=== PATIENT | female | born 1955 | race Caucasian/White ===

== ENCOUNTER 2021-03-11 09:12 | Day surgery (SDC) | payer OTHER ==
[~2021-03-11] VITALS: Ht 175.3 cm; Wt 113.4 kg
[~2021-03-11 09:12] MED LIST: ADULT ASPIRIN R81 MG PO; ATIVAN1 M1 PO; COZAAR100 MG PO; CYMBALTA30 MG PO; HYDRALAZINE 5050 MG PO; KEFLEX250 MG PO; LIPITOR 20 MG T20 M1 PO; NICODERM CQ1 EAC1 TOP; PEPCID40 MG PO; TYLENOL EXTRA500 MG PO; VERAPAMIL ER300 MG PO; XARELTO2.5 MG PO
[2021-03-11 10:10] VITALS: BP 137/63
[2021-03-11 10:36] LABS: APTT 32.2 Seconds (24.5-32.8); INR 0.94; PROTIME 10.3 Seconds (10.5-12.1)
--- NOTE | 2021-03-17 12:06 | PATH ---
[facility] [address] [place] [address] PATHOLOGY RPT PROCEDURE Name: MARTÍNEZ LIMA Room #: DEP [facility] M.R.#: [id number] Admission: 03/11/21 Date of : 57 Discharge: 03/11/21 Report #: [id number] Path Case #: [id number] [facility] Accession Number: [id number] . 01 Material submitted: . toe - RIGHT SECOND TOE. Modifiers: right, second . 01 Clinical history: . CELLULITIS, OSTEOMYELITIS AND HAMMER TOE RIGHT 2ND TOE . 02 Diagnosis: Right second toe, amputation: - Skin and soft tissue with scarring, granulation tissue and chronic fibrosing osteomyelitis. - Negative for active osteomyelitis or malignancy. - Proximal skin and soft tissue margins are viable. (ANK/db; 03/12/2021) LBQ 03/12/2021 1141 Local . 02 Electronically signed: . Daria Cruz MD, Pathologist NPI- [id number] . 01 Gross description: . The specimen is received in formalin, labeled "Martínez Lima, right second toe amputation" and consists of a disarticulated amputated toe (2.6 cm in length by 2.1 x 2.0 cm) with an attached, previously painted pink nail. The medial aspect displays a anguiano-roblero centrally depressed ulcer (0.9 x 0.9 cm) that comes to within 0.7 cm from the nearest surgical margin (inked black). The articular surface at the margin is smooth, hard and unremarkable. Sectioning reveals focally softened underlying bone. [employer] sections are submitted following decalcification as follows: A1: Skin and underlying soft tissue at margin nearest ulcer, submitted en face, represented and cross section of ulcer to show underlying bone, represented A2: Cross section of ulcer to show underlying bone, represented A3: Bone at proximal margin, submitted on edge, represented ([place]; 03/11/2021) DKA/DKA 03/11/2021 1639 Local . 02 Pathologist provided ICD-10: M86.671 . 02 CPT . 404198, [id number] Specimen Comment: A courtesy copy of this report has been sent to [phone], [place] [address] PATHOLOGY RPT PROCEDURE Name: MARTÍNEZ LIMA [id number] Admission: 03/11/21 Date of : 57 Discharge: 03/11/21 Report #: [id number] Path Case #: [id number] Specimen Comment: [id number] Specimen Comment: Report sent to / DR DUFF Specimen Comment: A duplicate report has been generated due to demographic updates. Performed at: [address], [place] [id number] MD Rakesh Hook MD Phone: [phone] Performed at: [address] [id number] MD Daria Cruz MD Phone: [phone]
== END 2021-03-11 13:30 | disposition home or self-care (01) ==
LOC: OR 09:12 → TBA 12:28 → OR 13:30
PROVIDERS: ATTEND Podiatrist Foot & Ankle Surgery
DX: M86.671 Other chronic osteomyelitis, right ankle and foot (principal); L97.513 Non-pressure chronic ulcer of other part of right foot with necrosis of muscle; M20.41 Other hammer toe(s) (acquired), right foot; M79.674 Pain in right toe(s); L03.031 Cellulitis of right toe; R60.0 Localized edema; M25.774 Osteophyte, right foot; I10 Essential (primary) hypertension; F32.9 Major depressive disorder, single episode, unspecified; F41.9 Anxiety disorder, unspecified; G47.30 Sleep apnea, unspecified; E78.00 Pure hypercholesterolemia, unspecified; K21.9 Gastro-esophageal reflux disease without esophagitis; Z98.890 Other specified postprocedural states; Z79.899 Other long term (current) drug therapy; Z85.828 Personal history of other malignant neoplasm of skin; Z79.82 Long term (current) use of aspirin; Z20.822 Contact with and (suspected) exposure to COVID-19
CPT/HCPCS: 50010; 50101; 50386; 50951; 56525; 57091; 57178; 62110; 62900; 70005

== ENCOUNTER 2021-04-30 14:49 | Emergency (ER) | payer OTHER ==
[~2021-04-30] VITALS: Ht 175.3 cm; Wt 108.9 kg
[2021-04-30 15:25] LABS: HEMATOCRIT 41.4 % (37.0-47.0); HEMOGLOBIN 13.9 gm/dL (12.0-15.0); MCH 31.6 pg (26.0-34.0); MCHC 33.6 g/dL (28.0-37.0); MCV 94.1 fL (80.0-100.0); RBC 4.4 mil/uL (4.20-5.00); RDW 13.5 % (10.5-14.5); WBC 10.4 thou/uL (4.0-11.0)
[2021-04-30 16:05] LABS: CALCIUM 9.2 mg/dL (8.5-10.1); CREATININE 0.9 mg/dL (0.6-1.0); POTASSIUM 4.3 mmol/L (3.5-5.1)
[2021-04-30 16:14] LABS: ALBUMIN 3.8 g/dL (3.4-5.0); TOTAL BILIRUBIN 0.3 mg/dL (0.2-1.0); TOTAL PROTEIN 7.4 g/dL (6.4-8.2)
[2021-04-30 16:25] LABS: URINE BILIRUBIN NEGATIVE (Negative); URINE BLOOD TRACE (Negative); URINE CLARITY CLEAR; URINE COLOR YELLOW; URINE GLUCOSE-RANDOM* NEGATIVE (Negative); URINE KETONES NEGATIVE (Negative); URINE LEUKOCYTES-REFLEX NEGATIVE (Negative); URINE NITRITE-REFLEX NEGATIVE (Negative); URINE PROTEIN (DIPSTICK) NEGATIVE (Negative); URINE SPECIFIC GRAVITY <= 1.005 (1.005-1.035); URINE UROBILINOGEN 0.2 E.U./dl (0.2-1.0)
[2021-04-30] MEDS ORDERED: LEVOFLOXACIN750 MG PO (16:41)
[2021-04-30 16:49] VITALS: BP 169/67
--- NOTE | 2021-05-01 07:48 | EKG ---
[place] [address] [facility] [place] [address] ELECTROCARDIOGRAM REPORT Name: MARTÍNEZ LIMA [id number] Admission: 04/30/21 Attend Phys: Discharge: 04/30/21 Date of : 57 Report #: [id number] [facility] ED Test Date: 2021-04-30 Test Time: 15:05:11 Pat Name: MARTÍNEZ CRAIG Department: Room: Gender: F Enrollment Nurse: GAUTAM : 1955 Requested By: Ramonita Howard Order Number: [id number] MD: Chao Welch Measurements Intervals [place] Rate: 93 P: 63 AK: 163 QRS: 41 QRSD: 91 T: 83 QT: 356 QTc: 443 Interpretive Statements Sinus rhythm No significant abnormality No previous ECG available for comparison Electronically Signed On 05-01-2021 7:48:01 [employer] by Chao Welch [email or web address] <ELECTRONICALLY SIGNED> By: Chao Welch MD, [facility] 05/01/21 0748 1505 1505 Chao Welch MD, FACC /EPI
== END 2021-04-30 16:50 | disposition home or self-care (01) ==
LOC: ER 14:49
PROVIDERS: Nurse Practitioner Family
DX: J18.9 Pneumonia, unspecified organism (principal); Z20.822 Contact with and (suspected) exposure to COVID-19; H53.8 Other visual disturbances; R73.9 Hyperglycemia, unspecified; I10 Essential (primary) hypertension; E78.00 Pure hypercholesterolemia, unspecified; F41.9 Anxiety disorder, unspecified; F32.9 Major depressive disorder, single episode, unspecified; K21.9 Gastro-esophageal reflux disease without esophagitis; Z85.820 Personal history of malignant melanoma of skin; Z79.82 Long term (current) use of aspirin; Z79.899 Other long term (current) drug therapy